=== PATIENT | male | born 1965 | race Caucasian/White ===

== ENCOUNTER 2024-09-09 19:31 | Emergency (ER) | payer BC, SELFPAY ==
[2024-09-09 19:31] VITALS: BMI 37.4
[2024-09-09 19:32] VITALS: BP 170/100
[2024-09-09 20:00] VITALS: BP 154/75
[2024-09-09 20:43] VITALS: BP 154/75
--- NOTE | 2024-09-09 20:52 | ED.GENMED ---
History of Present Illness
General
Chief Complaint: Male Genito-Urinary Symptoms
Source: patient
Exam Limitations: none
Time Seen by Provider: 09/09/24 20:23
History of Present Illness
History of Present Illness:
This is a 58 year old male that comes in with c/o urinary frequency and burning. States that this started over a month ago. States that he went to the PCP and he was given Flomax. State that he stopped this 4 days ago as he was just urinating all
the time. States that when he was at work his bladder just hurt. States that there is a burning. Denies any fever, chills, chest pain, SOB, abd pain, nausea, vomiting, diarrhea, headache, dizziness.
Past History
Past History
ED Past Medical History: Hypercholesterolemia, Hyperthyroidism, Psychiatric (Bipolar) and Other (Hyperthyroid, Cellulitis, UTI, lymphedema, Hypertrophic cardiomyopathy); Negative CAD or CHF
ED Past Surgical History: Appendectomy, Orthopedic (knee surgery right meniscus) and Other (had right lung 'drained' Chest tube, )
Patient has exhibited threatening behavior?: No
Social History
Tobacco: Non-smoker
Alcohol: None
Drug: None
Personal:
Living: alone
Employment: Not employed
Family History
Family History: Cancer (Father)
Review of Systems
Review of Systems
All Other Systems: ROS reviewed and negative except as documented in HPI and ROS
Constitutional: Reports no symptoms; Denies fever or chills
EENT: Reports no symptoms
Respiratory: Reports no symptoms; Denies cough or trouble breathing
Cardiac: Reports no symptoms; Denies chest pain
ABD/GI: Reports no symptoms; Denies abdominal pain, nausea, vomiting or diarrhea
: Reports dysuria, frequency and urgency
Musculoskeletal: Reports no symptoms
Skin: Reports no symptoms
Neurological: Reports no symptoms; Denies dizzy or headache
Psychiatric: Reports no symptoms
Phy Exam
General Physical Exam
General Presentation: well appearing and no apparent distress
General age: appears stated age
General Skin: warm and dry
General Habitus: normal
General Mental: alert
General Hydration: appears well hydrated
ENT Exam
ENT Exam: TM's normal, pharynx normal and neck supple
Eye Exam
Eye Exam: EOMI
Cardiovascular Exam
Cardiovascular Exam: regular rate/rhythm and normal peripheral pulses
Pulmonary Exam
Pulmonary Exam: lungs clear, no respiratory distress, no rales, chest non tender, no crackles, no rhonchi, no wheezing and no cough
Gastrointestinal Exam
Gastrointestinal Exam: normal bowel sounds, non tender, soft, no organomegaly, no pulsatile mass and non distended
Musculoskeletal Exam
Musculoskeletal Exam: full ROM
Skin Exam
Skin Exam: normal color, warm/dry, no rash and no petechia
Psychiatric Exam
Psychiatric Exam: normal mood/affect
Course
Orders/Labs/Results
Orders:
Orders
09/09/24 20:49
Urinalysis Reflex To Culture Urgent
Date Specimen was Collected: 09/09/24
Time Specimen was Collected: 20:48
09/09/24 21:56
Add On- LAB Urgent
Tests Added?: Urine GC and Chlamydia
Urine negative for infection or blood
Vital Signs
Initial and Last Documented VS:
Initial Vital Signs
Temp Pulse Resp BP Pulse Ox
98.1 F 70 22 170/100 100
09/09/24 19:32 09/09/24 19:32 09/09/24 19:32 09/09/24 19:32 09/09/24 19:32
Last Documented Vital Signs
Temp Pulse Resp BP Pulse Ox
98.1 F 71 16 154/75 97
09/09/24 19:32 09/09/24 20:00 09/09/24 20:00 09/09/24 20:43 09/09/24 20:45
MDM/Problems Addressed
Differential Diagnosis Includes:
UTI,
MDM/Problems Addressed:
This is a 58 year old male that comes in with c/o urinary burning and frequency. States that this has been going on for months. States that his PCP put him on Flomax but he stopped this 4 days ago as he was going so frequently. States that his
bladder just moralez.
Will get urine. Patient was bladder scanned before urination and there was 192. Post void urine was 31.
Back into see patient. Explained that his urine is negative for infection or blood. will add on GC and Chlamydia. Explained to patient that he would be called if this would come back positive. Patient to follow up with the Urologist. Return with
any concerns.
Chronic conditions affecting care:
NA
Acute Exacerbation and/or Progression of Chronic Illness:
NA
*Pulse Oximetry
Patient hypoxic: no
*EKG
Interpreted by ED Provider?: NA
Rate: EKG- N/A
*Food Management Aide Interpretation
Rate: Food Management Aide- N/A
*Critical Care Note
Total Time (30-74mins, 75-104mins- exclusive of procedures): Not Applicable
ED Attending Note
-
Portions of this chart may have been created with voice recognition software.� Occasional wrong word or��sound alike� substitutions may have occurred due to the inherent limitations of voice recognition software.
Discharge Plan
Departure
Patient Disposition: Home (Routine Discharge)
Date of Disposition: 09/09/24
Time of Disposition: 21:58
Patient with high blood pressure during this ER visit?: Yes
Condition: Good
Covid-19: Not Applicable
Discharge Problem:
Urinary burning
Instructions: BLOOD PRESSURE
Prescriptions:
No Action
No Current Medications
0
Referrals:
Jorge Rodrigues MD [Active] - Follow up in 2-3 days
Dylan Croft DO [Family Provider] -
Activity Restrictions/Additional Instructions:
As discussed, your urine is negative for infection or blood. Further urine testing for GC and Chlamydia was added. If this would come back positive you will be called and started on antibiotics. Please follow up with the Urologist. IF YOU HAVE ANY
OTHER CONCERNS PLEASE RETURN TO THE EMEGENCY ROOM.
Interventions
Interventions:
*Risk Screen - Suicide Last Done: 09/09/24 19:32
*General Assessment Last Done: 09/09/24 20:45
*Neglect/Abuse Screening Last Done: 09/09/24 19:32
ED- Fall Risk Assessment Last Done: 09/09/24 20:45
ED-Male Genitourinary Assessment Last Done: 09/09/24 20:45
Discharge Date and Time
Print Language: MOLDOVAN
[2024-09-09 20:58] LABS: Urine Albumin Negative (Neg - Trace); Urine Bilirubin Negative (Negative); Urine Character Clear (Clear); Urine Color Yellow; Urine Glucose Negative (Negative); Urine Ketone Negative (Negative); Urine Leukocyte Negative (Negative); Urine Nitrite Negative (Negative); Urine Occult Blood Negative (Negative); Urine Urobilinogen Negative (Neg - 1+)
== END 2024-09-09 22:08 | disposition home or self-care (01) ==
LOC: EMR 19:31
PROVIDERS: Clinical Nurse Specialist Family Health; EMERGENCY PHYSICIAN Student in an Organized Health Care Education/Training Program; FAMILY PHYSICIAN Family Medicine
DX: R30.9 Painful micturition, unspecified (principal); R35.0 Frequency of micturition; R03.0 Elevated blood-pressure reading, without diagnosis of hypertension
CPT/HCPCS: 99283; 51798; 81003; 87491; 87591

== ENCOUNTER 2024-09-12 00:52 | Emergency (ER) | payer BC, SELFPAY ==
[2024-09-12 01:02] VITALS: BP 177/108
[2024-09-12 02:43] VITALS: BMI 37.9
[2024-09-12 02:47] VITALS: BP 180/98
[2024-09-12 03:14] VITALS: BP 179/95
--- NOTE | 2024-09-12 03:30 | ED.GENMED ---
History of Present Illness
<ORION Choe - Last Filed: 09/12/24 06:36>
General
Chief Complaint: Male Genito-Urinary Symptoms
Source: patient
Time Seen by Provider: 09/12/24 03:17
History of Present Illness
History of Present Illness:
A 58 yo male with a PMH of BPH, hypertrophic cardiomyopathy, HLD presents to the ED for dysuria x 1 week. Patient stated that the dysuria originally began about 3 months ago and that he initially sought care via his pcp who put him on 1 months of
Flomax which ended last week. The dsyuria which he discribes as a burning sensation that radiates into his suprapubic region has progressively gotten worse led him to his initial ED visit this past wednesday. He returns tonight with the same
symptoms. He also tells me that over the last 2 months he's had nocturia waking up at times '9 times a night' to go to the bathroom. He denies any urethra discharge or hesitency. His GC/CT PCR testing was negative on 09/09/2024, but his urinary
culture has not come back yet. He denies fever, flank pain, abdominal pain, chills, chest pain, N/V/D/C.
He states that has BPH and follows with urology. currently no concerns for prostate cancer per urology dt low psa according to patient.
Past History
<ORION Choe - Last Filed: 09/12/24 06:36>
Past History
ED Past Medical History: Hypercholesterolemia, Hyperthyroidism, Psychiatric (Bipolar) and Other (Hyperthyroid, Cellulitis, UTI, lymphedema, Hypertrophic cardiomyopathy); Negative CAD or CHF
ED Past Surgical History: Appendectomy, Orthopedic (knee surgery right meniscus) and Other (had right lung 'drained' Chest tube, )
Patient has exhibited threatening behavior?: No
Social History
Tobacco: Non-smoker
Alcohol: None
Drug: None
Personal:
Living: alone
Employment: Not employed
Family History
Family History: Diabetes and Cancer (Father)
Phy Exam
<Irving Terrazas ORALIA - Last Filed: 09/12/24 06:36>
General Physical Exam
General Presentation: well appearing and no apparent distress
General age: appears stated age
General Skin: warm and dry
General Habitus: obese
General Mental: alert
General Hydration: appears well hydrated
Cardiovascular Exam
Cardiovascular Exam: regular rate/rhythm, no edema, no gallop, no murmur and normal peripheral pulses
Pulmonary Exam
Pulmonary Exam: lungs clear, no respiratory distress, no rales, no crackles and no wheezing
Genitourinary Exam Male
Exam Male: circumcised, no CVAT, no discharge, normal external genitalia, normal testicular exam, no evidence of trauma, no lesions, no testicular swelling and no testicular tenderness
Epididymis Exam: normal
Neurological Exam
Neurological Exam: alert and oriented x3
Musculoskeletal Exam
Musculoskeletal Exam: full ROM
Skin Exam
Skin Exam: normal color, warm/dry and no rash
Psychiatric Exam
Psychiatric Exam: normal mood/affect
Course
<Irving Terrazas [facility] - Last Filed: 09/12/24 06:36>
Orders/Labs/Results
Orders:
Orders
09/12/24 03:15
Urinalysis Reflex To Culture Urgent
Date Specimen was Collected: 09/12/24
Time Specimen was Collected: 01:09
09/12/24 04:38
Phenazopyridine HCl [Pyridium] 200 mg PO NOW STA
09/12/24 04:39
CT Abd/pel Without Iv Or Oral Urgent
Comment:
Reason For Exam: urniary frequency
Bladder Scan- Treatment ONCE
09/12/24 05:20
Complete Blood Count/With Diff Urgent
Comprehensive Metabolic Panel Urgent
Abnormal Lab Results
09/12/24
05:20
MPV 11.7 H fL
(7.4-10.4)
Absolute Monos (auto) 0.9 H 10^3/uL
(0.1-0.6)
Immature Gran % 0.6 H %
(0-0.5)
Monocytes % 12.1 H %
(1.7-9.3)
Potassium 5.3 H mmol/L
(3.5-5.1)
BUN 28 H mg/dl
(9-20)
09/12/24 05:20
09/12/24 05:20
Vital Signs
Initial and Last Documented VS:
Initial Vital Signs
Temp Pulse Resp BP Pulse Ox
97.8 F 69 17 177/108 95
09/12/24 01:02 09/12/24 01:02 09/12/24 01:02 09/12/24 01:02 09/12/24 01:02
Last Documented Vital Signs
Temp Pulse Resp BP Pulse Ox
97.8 F 69 17 189/98 96
09/12/24 01:02 09/12/24 01:02 09/12/24 01:02 09/12/24 06:04 09/12/24 06:04
Natanlt;Hilario Vo, DO - Last Filed: 09/12/24 04:56>
Orders/Labs/Results
Orders:
Orders
09/12/24 03:15
Urinalysis Reflex To Culture Urgent
Date Specimen was Collected: 09/12/24
Time Specimen was Collected: 01:09
09/12/24 04:38
Phenazopyridine HCl [Pyridium] 200 mg PO NOW STA
09/12/24 04:39
CT Abd/pel Without Iv Or Oral Urgent
Comment:
Reason For Exam: urniary frequency
Bladder Scan- Treatment ONCE
09/12/24 05:20
Complete Blood Count/With Diff Urgent
Comprehensive Metabolic Panel Urgent
Abnormal Lab Results
09/12/24
05:20
MPV 11.7 H fL
(7.4-10.4)
Absolute Monos (auto) 0.9 H 10^3/uL
(0.1-0.6)
Immature Gran % 0.6 H %
(0-0.5)
Monocytes % 12.1 H %
(1.7-9.3)
Potassium 5.3 H mmol/L
(3.5-5.1)
BUN 28 H mg/dl
(9-20)
09/12/24 05:20
09/12/24 05:20
Vital Signs
Initial and Last Documented VS:
Initial Vital Signs
Temp Pulse Resp BP Pulse Ox
97.8 F 69 17 177/108 95
09/12/24 01:02 09/12/24 01:02 09/12/24 01:02 09/12/24 01:02 09/12/24 01:02
Last Documented Vital Signs
Temp Pulse Resp BP Pulse Ox
97.8 F 69 17 189/98 96
09/12/24 01:02 09/12/24 01:02 09/12/24 01:02 09/12/24 06:04 09/12/24 06:04
<ORION Choe - Last Filed: 09/12/24 06:36>
MDM/Problems Addressed
Differential Diagnosis Includes:
UTI, prostatitis, urinary retention
<Hilario Vo DO - Last Filed: 09/12/24 04:56>
MDM/Problems Addressed
Differential Diagnosis Includes:
UTI prostatitis urinary retention
MDM/Problems Addressed:
Urinary frequency
Chronic conditions affecting care:
Urinary frequency
<ORION Choe - Last Filed: 09/12/24 06:36>
*Critical Care Note
Total Time (30-74mins, 75-104mins- exclusive of procedures): Not Applicable
<ORION Choe - Last Filed: 09/12/24 06:36>
Update Note
Update Note:
0624: 09/12/2024: Patient educated that his CT scan, bladder scan, and urinalysis were all benign and/or negative. patient questions were answered. Told patient that he needed to follow up with his urologist for further workup to determine origin of
pain.
ED Attending Note
<ORION Choe - Last Filed: 09/12/24 06:36>
-
Portions of this chart may have been created with voice recognition software.� Occasional wrong word or��sound alike� substitutions may have occurred due to the inherent limitations of voice recognition software.
<Hilario Vo DO - Last Filed: 09/12/24 04:56>
ED Attending Note
Patient seen and examined by attending physician: Yes
ED Attending Note:
Seen with student examined independently, prior record visit from a few days ago reviewed 58-year-old male 3 months of dysuria/frequency seen by his PCP and urology clear for any cancer does have a family history of cancer 10 years ago was told that
he may have chronic prostatitis apparently does not have that now, no fever no nausea no vomiting apparently his PSA was low
Discharge Plan
Departure
Patient Disposition: Home (Routine Discharge)
Date of Disposition: 09/12/24
Time of Disposition: 06:16
Patient with high blood pressure during this ER visit?: No
Condition: Good
Discharge Problem:
Urinary urgency
Prescriptions:
New
phenazopyridine [Pyridium] 200 mg tablet
200 mg PO PC PRN (Reason: Pain) Qty: 6 0RF
Referrals:
Dylan Croft DO [Family Provider] - Next open appointment
Sunil Gallegos MD [Active] - Next open appointment
Interventions
Interventions:
*Risk Screen - Suicide Last Done: 09/12/24 00:58
*General Assessment Last Done: 09/12/24 02:49
*Neglect/Abuse Screening Last Done: 09/12/24 00:58
ED- Fall Risk Assessment Last Done: 09/12/24 06:24
*ED COVID-19 Vaccine History Last Done: 09/12/24 02:31
*Nursing Disposition Last Done: 09/12/24 06:24
ED-Male Genitourinary Assessment Last Done: 09/12/24 02:43
Discharge Date and Time
Discharge Date/Time: 09/12/24 06:29
Print Language: ICELANDIC
[2024-09-12 03:33] LABS: Urine Albumin Negative (Neg - Trace); Urine Bilirubin Negative (Negative); Urine Character Clear (Clear); Urine Color Yellow; Urine Glucose Negative (Negative); Urine Ketone Negative (Negative); Urine Leukocyte Negative (Negative); Urine Nitrite Negative (Negative); Urine Occult Blood Negative (Negative); Urine Specific Gravity 1.025 (<1.030); Urine Urobilinogen Negative (Neg - 1+)
[2024-09-12 04:11] VITALS: BP 180/95
[2024-09-12 05:02] VITALS: BP 171/99
[2024-09-12] MEDS: Pyridium 200 MG PO (05:04)
[2024-09-12 05:29] LABS: % Eosinophils 2.8 % (0-6); % Immature Granulocytes 0.6 % (0-0.5); % Lymphocytes 34.3 % (20.5-51.1); % Monocytes 12.1 % (1.7-9.3); % Neutrophils 49.2 % (42.2-75.2); Absolute Basophils 0.1 10^3/uL (0-0.2); Absolute Eosinophils 0.2 10^3/uL (0-0.7); Absolute Lymphocytes 2.4 10^3/uL (1.2-3.4); Absolute Monocytes 0.9 10^3/uL (0.1-0.6); Absolute Neutrophils 3.5 10^3/uL (1.4-6.5); Hematocrit 42.1 % (39.0-52.0); Hemoglobin 14.4 g/dL (13.0-18.0); Mean Corp Hgb Conc. 34.2 g/dL (33.0-37.0); Mean Corpuscular Hgb 28.9 pg (27.0-31.0); Mean Corpuscular Volume 84.5 fL (80.0-94.0); Mean Platelet Volume 11.7 fL (7.4-10.4); Nucleated Red Blood Cells % 0 % (-); Platelet Count 148 10^3/uL (130-400); Red Blood Cell Count 4.98 10^6/uL (4.70-6.10); Red Cell Dist. Width 12.7 % (11.5-14.5)
[2024-09-12 05:56] LABS: ALT (SGPT) 15 U/L (0-50); AST (SGOT) 25 U/L (17-59); Albumin 4.5 g/dl (3.5-5.0); Alkaline Phosphatase 73 U/L (38-126); Blood Urea Nitrogen 28 mg/dl (9-20); Calcium 9.4 mg/dl (8.4-10.2); Carbon Dioxide 26 mmol/L (22-30); Chloride 102 mmol/L (98-107); Estimated Creatinine Clearance 113 ml/min; Glucose 97 mg/dl (70-99); Potassium 5.3 mmol/L (3.5-5.1); Sodium 140 mmol/L (135-145); Total Bilirubin 0.7 mg/dl (0.2-1.3); Total Protein 7.4 g/dl (6.3-8.2); eGFR > 60.00
[2024-09-12 06:04] VITALS: BP 189/98
== END 2024-09-12 06:29 | disposition home or self-care (01) ==
LOC: EMR 00:52
PROVIDERS: EMERGENCY PHYSICIAN Emergency Medicine; FAMILY PHYSICIAN Family Medicine
DX: N40.1 Benign prostatic hyperplasia with lower urinary tract symptoms (principal); R39.15 Urgency of urination; I42.2 Other hypertrophic cardiomyopathy; E78.00 Pure hypercholesterolemia, unspecified; Z90.49 Acquired absence of other specified parts of digestive tract
CPT/HCPCS: 99284; 74176; 80053; 81003; 85025